=== PATIENT | male | born 1950 | race Caucasian/White ===

== ENCOUNTER → 2019-08-17 13:37 | Outpatient (CLI) | payer MEDICARE, SELFPAY ==
--- NOTE | ~2019-08-17 | XR_ITS ---
EXAMINATION: XR chest 2V EXAM DATE: 08/17/2019 13:47 INDICATION: Fibrosis. TECHNIQUE: Frontal and lateral projections of the chest obtained and reviewed. Comparison is made to prior examination from 05/09/2016. FINDINGS: There is left lung scarring, unchanged. The lungs are otherwise clear. There are no pleur al effusions. The cardiomediastinal silhouette is within normal limits. There is no pneumothorax arias spected. The bones and soft tissues are unremarkable. There is tortuosity of the aorta. IMPRESSION: No acute cardiopulmonary findings. Reviewed, dictated and finalized at location B.
== END ==
PROVIDERS: PCP Family Medicine; Visit Provider Family Medicine
DX: J84.10 Pulmonary fibrosis, unspecified (principal)
CPT/HCPCS: 71046

== ENCOUNTER 2019-08-28 13:13 | Outpatient (CLI) | payer MEDICARE, SELFPAY ==
--- NOTE | ~2019-08-28 | XR_ITS ---
EXAMINATION:XR cervical spine 4-5V DATE: 08/28/2019 13:29 INDICATION: Neck pain TECHNIQUE: AP, lateral, lateral swimmers and odontoid views of the cervical spine are provided. COMPARISON: None FINDINGS: There are 2 mm of retrolisthesis of C3 on C4. There is straightening of the cervical spine which can be positional or due to muscular spasm. The odontoid is intact. No fracture is identified. The vertebral body heights are normal. There is moderate loss of intervertebral disc space height thr oughout the cervical spine. Small degenerative osteophytes project from the anterior endplates of mul tiple vertebral bodies. There is moderate multilevel facet and uncovertebral joint osteoarthritis. Pr evertebral soft tissues are normal. IMPRESSION: 1. Moderate to severe cervical spondylosis without acute findings. Reviewed, dictated and finalized at location A.
== END 2019-08-28 13:14 | disposition home or self-care (01) ==
PROVIDERS: PCP Family Medicine; Visit Provider Family Medicine
DX: M54.2 Cervicalgia (principal); M47.812 Spondylosis without myelopathy or radiculopathy, cervical region
CPT/HCPCS: 72050

== ENCOUNTER 2022-02-06 13:01 | Outpatient (CLI) | payer MEDICARE, SELFPAY ==
--- NOTE | ~2022-02-06 | XR_ITS ---
XR chest 2V 02/06/2022 13:43 Indication: Low back pain Procedure: 2 views chest Comparison: Comparison to multiple prior studies sequentially, with oldest reviewed study dated 09/2013. Findings: Stable left pleural calcification and scarring of the left mid and lower lung. Heart size n ormal. No acute focal pneumonia, edema or effusion. No acute osseous abnormality. Impression: 1: No acute cardiopulmonary disease. Reviewed, dictated and finalized at location A. Impression: 1: No acute cardiopulmonary disease.
--- NOTE | ~2022-02-06 | XR_ITS ---
XR lumbar spine 6V w bending 02/06/2022 13:43 Indication: Low back pain Procedure: 7 views lumbar spine including flexion and extension views Comparison: CT dated 05/31/2017 Findings: There is mild chronic wedge shaped appearance at T12. There is disc narrowing at all lumbar levels. No significant alteration of alignment with flexion/extension. No evidence for spondylolisth esis. Sacral foramen are symmetric. There is mild levoscoliosis. Impression: 1: Moderate lumbar spondylosis. Reviewed, dictated and finalized at location B. Impression: 1: Moderate lumbar spondylosis.
== END 2022-02-06 13:02 | disposition home or self-care (01) ==
LOC: CHSIMG 13:02
PROVIDERS: PCP Family Medicine; Visit Provider Family Medicine
DX: J62.8 Pneumoconiosis due to other dust containing silica (principal); M54.50 Low back pain, unspecified; G89.29 Other chronic pain
CPT/HCPCS: 71046; 72114

== ENCOUNTER 2022-02-12 12:48 | Outpatient (RCR) | payer MEDICARE, SELFPAY ==
--- NOTE | 2022-02-12 15:23 | PTOPEVAL1 ---
Assessment and note entered by Jami Langston DPT Evaluation Information Assessment Status Evaluation Diagnosis Low back pain, hip pain Onset 01/16/2022 Subjective Information Pt reports that pain is ongoing and occurs every day. He reports that pain is the worst when he first gets up. If he is busy with standing, walking, and yard work it increases. He reports that he had an Xray but has an appointment tomorrow to discuss his Xray and POC going forward . Reports pain in his bilateral hip and glute regions. Pain does not go past the glute region. He reports pain when turning and stepping up or down on a stair. Denies numbness/tingling, denies weakness. Pain is usually worse when he wakes up, but also gets worse with activity. Pain sometimes wakes him up at night. Pt reports that pain has been getting worse over the last ~6 months. Reported Pain Level Pain Score 4: Self Report Assessment PT Clinical Summary Pt presents to physical therapy with bilateral gluteal region pain and demonstrates decreased strength, decreased mobility, and antalgic gait. His current deficits make it more challenging for him to walk, turn, and go up stairs as needed for his daily activities and yardwork. He was provided with an HEP focused on improving strength and mobility within his tolerance. He will benefit from skilled PT to facilitate symptom relief, improve the aforementioned impairments, and return to functional and recreational activities. Plan of Care Interventions Electrical Stimulation,Gait Training,Hot Pack/Cold Pack,Manual Therapy,Mechanical Traction,Neuro Re- education,Patient/Caregiver Educati,Therapeutic Activities,Therapeutic Exercise PT Services Indicated Yes Treatment Frequency and 2x week for 10 visits Duration These treatments will address the objective and functional deficits as defined above. The patient will be advanced safely and appropriately in order for the patient to progress towards his/her prior level of function. Additional exercises will be introduced and as well as a comprehensive home exercise program upon discharge, if needed, ?to ensure carryover of functional gains achieved in the clinic. This treatment plan has been reviewed and agreement upon by the patient.
--- NOTE | 2022-07-10 09:19 | PCPTNOTE ---
mr mckeon has not been to skilled PT services since 04/09/22. per his last note, he had had an increased in pain from doing too much, but still mild at most. he will be DC'd from skilled PT services and all progress towards goals will be taken from his most recent evaluation/note.
== END 2022-04-19 23:59 | disposition home or self-care (01) ==
LOC: CHSPT 12:48
PROVIDERS: PCP Family Medicine; Visit Provider Family Medicine
DX: M54.50 Low back pain, unspecified (principal); G89.29 Other chronic pain
CPT/HCPCS: 97014; 97110; 97140; 97161; 97530; G0283

== ENCOUNTER 2023-05-12 12:24 | Emergency (ER) | payer MEDICARE, SELFPAY ==
[2023-05-12] VITALS (20 sets, daily range): BP systolic 134–197; BP diastolic 76–111; PULSE 69–101; RESP 13–32; TEMP 36.7–36.8; O2SAT 92–100
--- NOTE | ~2023-05-12 | XR_ITS ---
XR chest 1V portable DATE: 05/12/2023 13:04 INDICATION: Chest pain TECHNIQUE: Portable upright AP chest on 05/12/2023 at 1302 hours COMPARISON: 02/06 2022 view chest FINDINGS: Cardiomegaly. Aortic calcification and tortuosity. No hilar or mediastinal enlargement is e vident. Calcified pleural plaques are again noted along the lateral right mid and medial lower left chest and along the left diaphragm. Mild infiltrate or atelectasis is suggested in the lower lung zones; otherwise no pulmonary consolida tion, pleural effusion or pneumothorax is evident. Mild thoracic dextro scoliosis. Diffuse osteopenia. IMPRESSION: Prominent left calcified pleural plaques Mild infiltrate or atelectasis in the lower lung zones Cardiomegaly, aortic atherosclerosis Reviewed, dictated and finalized at location A. N FREIGHT FORWARDER
--- NOTE | 2023-05-12 12:26 | ECG_ITS ---
Measurements Intervals [place] Rate: 80 P: 14 IN: 131 QRS: -23 QRSD: 99 T: 20 QT: 360 QTc: 416 Interpretive Statements SINUS RHYTHM DELAYED PRECORDIAL R/S TRANSITION VOLTAGE CRITERIA FOR LVH BASELINE ARTIFACT- I, II, III, AVR, AVL, AVF, V3 BORDERLINE ECG NO PREVIOUS ECG AVAILABLE FOR COMPARISON Electronically Signed On 05-12-2023 16:09:01 JANITORIAL TECH by Darell Thomas D.O.
[2023-05-12 13:01] LABS: Basophils Percent Auto 0.5 % (0.2-1.2); Eosinophils Absolute Auto 0.3 K/mm3 (0-0.3); Eosinophils Percent Auto 4.2 % (0-4.4); Hematocrit 45.3 % (42.0-52.0); Hemoglobin 14.9 g/dL (14.0-18.0); Immature Granulocyte Absolute 0.02 K/mm3 (0.00-0.031); Immature Granulocyte Percent A 0.3 % (0-0.5); Lymphocytes Absolute Auto 1.97 K/mm3 (0.9-3.2); Lymphocytes Percent Auto 26.9 % (18.3-44.2); Mean Corpuscular HGB Conc 32.9 g/dl (32-36); Mean Corpuscular Hemoglobin 30.3 pg (26-34); Mean Corpuscular Volume 92.3 fl (80-100); Mean Platelet Volume 9.5 fl (7.4-10.4); Monocytes Absolute Auto 0.7 K/mm3 (0.1-0.6); Monocytes Percent Auto 9.7 % (2.6-8.5); Neutrophils Absolute Auto 4.3 K/mm3 (1.3-6.7); Neutrophils Percent Auto 58.4 % (45.5-73.1); Platelet Count Result 228 k/mm3 (150-375); Red Blood Count 4.91 M/mm3 (4.6-6.20); Red Cell Distribution Width 11.9 % (11.5-14.5); White Blood Count 7.3 K/mm3 (4.5-10.0)
--- NOTE | 2023-05-12 13:04 | ED.CHESTPAIN ---
HPI - Chest Pain General Chief Complaint: Chest Pain Stated Complaint: chest pain Time Seen by Provider: 05/12/23 13:01 Source: patient and family () Mode of arrival: ambulatory Limitations: no limitations History of Present Illness HPI narrative: 72 yo male presents with complaint of chest pain. This has been occurring intermittently over the past few days. He describes it as indigestion and states he has dealt with heartburn for years. However, he has a history of a heart aneurysm and managed with routine surveillance CTs at [facility] (last one in February 2023, stable by report). No shortness of breath, vomiting, fevers. He describes it as a tightness, 2 out of 10 in severity but constant. His heartburn is chronic and managed with pantoprazole as well as OTC Tums chews. He describes it as a gas pocket, feels like he needs to belch and when he is able to belch he experiences relief. He is supposed to be on amytriptyline but not taking it because it made/makes him drowsy. He has a pain at his rotator cuff and bicep/tricep, described as as dull ache. Urgent care gve him a GI cocktail prior to arrival which helped. Otorhinolaryngologist used to be Dr Roblero but now Dr Hobbs (saw Dr Hobbs's CERTIFIED NURSE MIDWIFE in February); previously had visitis q6 months, then q1 year, now scheduled for q every other year. GI = Dr Fiore Related Data Home Medications Medication Instructions Recorded Confirmed Suraj's wort 300 mg tablet 300 mg PO DAILY 05/30/20 03/26/22 antiarthritic combination no.2 900 900 mg PO .qd 05/30/20 03/26/22 mg tablet (glucosamine-chondroitin) Allergies Allergy/AdvReac Type Severity Reaction Status Date / Time No Known Allergies Allergy Verified 05/09/22 13:01 [facility] Past Medical History Medical History (Updated 05/13/23 @ 00:13 by Tenzin Arroyo) BMI 29.0-29.9,adult Chronic GERD Hypertension Low back pain Overweight with body mass index (BMI) of 28 to 28.9 in adult Silicosis Thoracic ascending aortic aneurysm Surgical History Surgical History (Updated 05/13/23 @ 03:20 by Ange Lazcano MD) History of esophagogastroduodenoscopy (EGD) Dr. Fiore Family History Family History Other Diabetes mellitus Lung cancer Social History Social History Smoking status: Former smoker Smoking end date: 02/12/89 Exam Narrative: GENERAL: Well-appearing, well-nourished, and in no acute distress. HEAD: Normocephalic, atraumatic. EYES: Non injected, non icteric ENT: Nares clear, no rhinorrhea or epistaxis. NECK: Supple. CHEST: Clear to auscultation. No respiratory distress. Chest/HEART: Regular rate and rhythm. Pain not reproducible. No TTP of chest . ABDOMEN: Soft, nondistended. EXTREMITIES: Normal range of motion. No edema. SKIN: Warm, dry, no rash. NEURO: No focal deficits. Alert and oriented x3. PSYCH: Normal mood and affect. Course Vital Signs Vital signs: Vital Signs Temperature 98.2 F 05/12/23 12:27 Pulse Rate 85 05/12/23 12:27 Respiratory Rate 17 05/12/23 12:27 Blood Pressure 197/104 H 05/12/23 12:27 Pulse Oximetry 100 05/12/23 12:27 Oxygen Delivery Room Air 05/12/23 12:27 Temperature 98.0 F 05/12/23 16:14 Pulse Rate 76 05/12/23 16:14 Respiratory Rate 16 05/12/23 16:14 Blood Pressure 138/76 05/12/23 16:14 Pulse Oximetry 99 05/12/23 16:14 Oxygen Delivery Room Air 05/12/23 12:27 MDM - Chest Pain MDM Narrative Medical decision making narrative: Patient presents with chest pain though describes it as indigestion, better with belching. Hx of chronic indigestion and on a regimen, follows with GI. He also has a hsitory of heart aneurysm followed by [facility]. In the ED he is afebrile with VS notable for hypertension. Work up unremarkable. Stable for discharge to follow up with care team in outpatient setting.
[2023-05-12 13:13] LABS: Alanine Aminotransferase 34 U/L (6-50); Albumin Level 4.4 g/dL (3.5-5.1); Alkaline Phosphatase 92 U/L (38-126); Anion Gap 5 mmol/L (8-16); Aspartate Amino Transferase 33 U/L (17-59); Bilirubin,Total 1.1 mg/dL (0.2-1.3); Blood Urea Nitrogen 19 mg/dL (9-20); Calcium 9.3 mg/dL (8.4-10.2); Carbon Dioxide 30 mmol/L (22-30); Chloride 104 mmol/L (98-107); Estimated CRCL calculation 69 ml/min; Estimated Glomerular Filt Rate > 60; Glucose 119 mg/dL (65-110); Lipase 77 U/L (23-300); Potassium 4.3 mmol/L (3.4-5.0); Sodium 139 mmol/L (137-145)
[2023-05-12 13:18] LABS: Partial Thromboplastin Time 25.8 SECONDS (22.3-36.8); Prothrombin Time 13.2 Seconds (11.1-14.7)
[2023-05-12 13:23] LABS: Troponin I < 0.012 ng/mL (0.000-0.034)
--- NOTE | 2023-05-12 15:47 | ECG_ITS ---
Measurements Intervals [place] Rate: 78 P: -1 ME: 145 QRS: -24 QRSD: 98 T: 10 QT: 370 QTc: 423 Interpretive Statements SINUS RHYTHM VOLTAGE CRITERIA FOR LVH BORDERLINE R WAVE PROGRESSION, ANTERIOR LEADS BASELINE ARTIFACT- I, II, III, AVR, AVL, AVF BORDERLINE ECG COMPARED TO ECG 05/12/2023 12:34:30 NO SIGNIFICANT CHANGES Electronically Signed On 05-12-2023 16:16:01 AIR BRAKE MAN by Darell Thomas D.O.
[2023-05-12 16:20] LABS: Troponin I < 0.012 ng/mL (0.000-0.034)
== END 2023-05-12 16:14 | disposition home or self-care (01) ==
PROVIDERS: Emergency Medicine; Emergency Provider Student in an Organized Health Care Education/Training Program; PCP Family Medicine
DX: K21.9 Gastro-esophageal reflux disease without esophagitis (principal); R07.89 Other chest pain; I10 Essential (primary) hypertension; I71.21 Aneurysm of the ascending aorta, without rupture; Z87.891 Personal history of nicotine dependence
CPT/HCPCS: 36415; 71045; 80053; 83690; 84484; 85025; 85610; 85730; 93005; 99284

== ENCOUNTER 2024-03-30 12:07 | Outpatient (CLI) | payer MEDICARE, SELFPAY ==
[2024-03-30 12:18] LABS: Hematocrit 44.7 % (37.0-46.0); Hemoglobin 15.5 g/dL (12.4-15.3); Mean Corpuscular HGB Conc 34.7 g/dL (32-36); Mean Corpuscular Hemoglobin 30.9 pg (27.0-31.0); Platelet Count Result 254 K/mm3 (150-420); Red Blood Count 5.02 M/mm3 (4.70-6.10); Red Cell Distribution Width 11.9 % (11.6-14.4)
[2024-03-30 13:51] LABS: Alanine Aminotransferase 37 U/L (16-63); Albumin Level 4.1 g/dL (3.4-5.0); Alkaline Phosphatase 107 U/L (46-116); Anion Gap 7 mmol/L (4-12); Aspartate Amino Transferase 23 U/L (15-37); Bilirubin Direct 0.2 mg/dL (0-0.2); Bilirubin,Total 1.1 mg/dL (0.00-1.00); Blood Urea Nitrogen 11 mg/dL (7-18); Calcium 9.4 mg/dL (8.5-10.1); Carbon Dioxide 31 mmol/L (21-32); Chloride 103 mmol/L (98-108); Estimated Glomerular Filt Rate > 60; Glucose 116 mg/dL (70-99); Osmolality Calculated 292 mOsm/kg (285-295); Potassium 5.1 mmol/L (3.5-5.1); Prostate Specific Antigen 0.7 ng/mL (< OR = 4.0); Sodium 141 mmol/L (136-145); Thyroid Stimulating Hormone 1.49 uIU/mL (0.36-3.74); Total Protein 6.9 g/dL (6.4-8.2)
== END 2024-03-30 12:08 | disposition home or self-care (01) ==
LOC: CHSLAB 12:09
PROVIDERS: PCP Family Medicine; Visit Provider Family Medicine
DX: K30 Functional dyspepsia (principal); I10 Essential (primary) hypertension; Z12.5 Encounter for screening for malignant neoplasm of prostate
CPT/HCPCS: 36415; 80048; 80076; 84153; 84443; 85027; G0103

== ENCOUNTER 2024-06-02 12:48 | Outpatient (CLI) | payer MEDICARE, SELFPAY ==
[2024-06-02 12:59] LABS: Hematocrit 44.9 % (37.0-46.0); Hemoglobin 14.8 g/dL (12.4-15.3); Mean Corpuscular Hemoglobin 29.9 pg (27.0-31.0); Mean Corpuscular Volume 90.7 fL (78.0-102.0); Mean Platelet Volume 8.9 fl (8.7-11.0); Platelet Count Result 267 K/mm3 (150-420); Red Blood Count 4.95 M/mm3 (4.70-6.10); Red Cell Distribution Width 11.9 % (11.6-14.4); White Blood Count 7.3 K/mm3 (4.8-10.8)
--- OUTSIDE RECORDS SUMMARY | 2024-06-02 13:23 | XMS_ITS | Clinical Summary ---
Author Organization [facility] Address [address] [place] [id number] Care Team Providers Care Bi Data Architect Name Role Phone Manoj Solorzano MD Primary Care Provider [phone] Allergies No known active allergies Medications ibuprofen (ADVIL,MOTRIN) 800 mg tablet Take 800 mg by mouth every 6 (six) hours as needed for pain. Active pantoprazole DR (PROTONIX) 40 mg EC tablet Take 1 tablet (40 mg total) by mouth daily Active glucosam-chondro itin-diet cb25 116-100 mg capsule Take by mouth. Active chlorpheniramine (CHLOR-TRIMETON) 4 mg tablet TAKE 1 TABLET EVERY 4 HOURS NEEDED. Active acetaminophen (TYLENOL EXTRA STRENGTH) 500 mg tablet Take 1 tablet (500 mg total) by mouth every 6 (six) hours as needed for pain Active Suraj's wort 300 mg capsule Take 300 mg by mouth daily. Active amitriptyline (ELAVIL) 25 mg tablet Take 1 tablet (25 mg total) by mouth as needed (Takes about twice a week) 12/03/2019 Active losartan (COZAAR) 100 mg tablet 11/30/2019 Active Active Problems Problem Noted Date Diagnosed Date Aneurysm of ascending aorta without rupture 12/2017 Precordial pain 01/23/2017 Medical History Medical History Date Comments GERD (gastroesophageal reflux disease) Hypertension Ascending aortic aneurysm (HCC) Family History Relation Name Status Comments Father Mother Social History Tobacco Use Types Packs/Day Years Used Date Smoking Tobacco: Former Smokeless Tobacco: Never Tobacco Cessation:Counseling Given: Not Answered Alcohol Use Standard Drinks/Week Comments Yes 0 (1 standard drink = 0.6 oz pur e alcohol) Personal Safety Answer Date Recorded Getting School Help Needed Not on file 07/05 Sex and Gender Information Value Date Recorded Sex Assigned at Not on file Legal Sex Male 3:21 PM CDT Gender Identity Not on file Sexual Orientation Not on file Obstetrics History Last Filed Vital Signs Vital Sign Reading Time Taken Comments Blood Pressure 146/80 02/27/2023 11:20 AM CDT Pulse 62 02/27/2023 11:20 AM CDT Temperature 36.8 ??C (98.3 ??F) 02/23/2021 11:45 AM C DT Respiratory Rate 14 01/23/2017 9:23 AM CDT Oxygen Saturation 99% 02/27/2023 11:20 AM CDT Inhaled Oxygen Concentration - - Weight 92.8 kg (204 lb 8 oz) 02/27/2023 11:20 AM CDT Height 177.8 cm (5' 10 ) 12/22/2018 12:09 PM CDT Body Mass Index 29.34 12/22/2018 12:09 PM CDT Plan of Treatment Health Maintenance Due Date Last Done Comments Colon Cancer Screening-Colonoscopy 1950 Depression Screening 1950 Fall Risk Assessment 1950 Hepatitis C Screening 1950 DTaP/Tdap/Td Vaccine (1 - Tdap) 08/25/1963 Hepatitis B Screening 1970 Zoster Vaccine (1 of 2) 2002 Pneumococcal vaccine 65+ (1 of 1 - PCV) 2017 Well Visit 65+ 2017 Influenza Vaccine (#1) 2024 03/10/2019 Abdominal Aortic Aneurysm (AAA) Screen Completed Insurance MEDICARE SOLUTIONS [facility] CHOICE PLUS UHC CHOICE PLUS MEDICARE Vocation [employer] Care Teams Bi Data Architect Relationship Specialty Start Date End Date Manoj Solorzano MD PCP - General Family Medicine 11/23/20
--- OUTSIDE RECORDS SUMMARY | 2024-06-02 13:23 | XMS_ITS | Referral Summary ---
Author Organization [facility] Address [address] [place] [id number] Care Team Providers Care Boating Safety Officer Name Role Phone Manoj Solorzano MD Primary Care Provider [phone] Allergies No known active allergies Medications ibuprofen [...] aorta without rupture 12/2017 Precordial pain 01/23/2017 Social History Tobacco Use Types Packs/Day Years [...] on file Sexual Orientation Not on file Last Filed Vital Signs Vital Sign Reading [...] 12/22/2018 12:09 PM CDT Plan of Treatment [place] [address] MEDICARE SOLUTIONS [facility] CHOICE PLUS [facility] CHOICE PLUS MEDICARE SOLUTIONS [employer] Care Teams Boating Safety Officer Relationship Specialty Start Date End Date Manoj Solorzano MD PCP - General Family Medicine 11/23/20
[2024-06-02 13:25] LABS: Anion Gap 6 mmol/L (4-12); Blood Urea Nitrogen 13 mg/dL (7-18); Calcium 9.4 mg/dL (8.5-10.1); Carbon Dioxide 32 mmol/L (21-32); Chloride 105 mmol/L (98-108); Estimated Glomerular Filt Rate > 60; Glucose 104 mg/dL (70-99); Osmolality Calculated 296 mOsm/kg (285-295); Potassium 4.6 mmol/L (3.5-5.1); Sodium 143 mmol/L (136-145)
== END 2024-06-02 12:49 | disposition home or self-care (01) ==
LOC: CHSLAB 12:49
PROVIDERS: PCP Family Medicine; Visit Provider Family Medicine
DX: N52.9 Male erectile dysfunction, unspecified (principal)
CPT/HCPCS: 36415; 80048; 84402; 84403; 85027